=== PATIENT | male | born 1940 | race Caucasian/White ===

== ENCOUNTER 2016-08-22 13:06 | Observation (INO) | payer OTHER, MEDICARE ==
[~2016-08-22] VITALS: Ht 180.3 cm; Wt 136.0 kg
[~2016-08-22 13:06] MED LIST: ARTIDRO; DABI150 PO; ENAL20TA PO; FLUO60TA PO; FURO1TAB93 PO; IPRA0.02 INH; METO100T PO; MORP20SO PO; PRAZ2 PO; SPIRCAP INH; TAB-TAB PO
[2016-08-22 13:08] VITALS: BP 153/97; PULSE 68; RESP 28; TEMP 98.4; O2SAT 95
--- NOTE | 2016-08-22 13:45 | PD ---
HPI Chief Complaint: Abnormal Results Time Seen by Provider: 13:42 Travel History International Travel<30 days: No Contact w/Intl Traveler<30days: No Traveled to known affect area: No History of Present Illness HPI 76-year-old male with history of reactive airway disease, atrial fibrillation on Pradaxa, hypertension, CAD, CHF, presents to emergency department for evaluation of black tarry loose stools over the last 2 weeks. Patient's been seen and evaluated at the [facility]. He tells me last week his hemoglobin was 12 and today it was 11. They advised that he come to the emergency department for evaluation. Patient has had increasing shortness of breath. He has had pain associated with diarrhea cramping but otherwise no constant pain. He has felt chilled without fevers. He has felt overall fatigued. Patient's last colonoscopy was within the last couple years and he states that it was "fine." He has no other symptoms to report. PFSH Past Medical History Hx Anticoagulant Therapy: Yes Arthritis: Yes Asthma: Yes Atrial Fibrillation: Yes Anxiety: Yes Depression: Yes Cancer: No Cardiac Catheterization: Yes (JANUARY 2007) Cardiovascular Problems: Yes High Cholesterol: Yes Congestive Heart Failure: Yes COPD: Yes Cerebrovascular Accident: Yes Diabetes: Yes GERD: Yes Hepatitis: No Hiatal Hernia: No Hypertension: Yes Musculoskeletal: Yes (LOW BACK PAIN, RESTLESS LEG) Psychiatric: Yes (PTSD) Reproductive: Yes (BPH) Respiratory: Yes Myocardial Infarction: Yes Sleep Apnea: Yes (CPAP HS) Thyroid Disease: No Past Surgical History Abdominal Surgery: Yes (HERNIA REPAIR) Pacemaker: No Other Surgery: Yes Social History Alcohol Use: Yes (OCCASIONAL) Tobacco Use: No Substance Use: No Allergies-Medications (Allergen,Severity, Reaction): Coded Allergies: Simvastatin (Unverified Allergy, Severe, leg cramps, 08/22/16) Reported Meds & Prescriptions Reported Meds & Active Scripts Active Reported Morphine Sulfate 20 Mg/5 Ml Jamia 20 Mg PO Lasix (Furosemide) 40 Mg Tab 40 Mg PO DAILY Atrovent Ud 0.02% (0.5 Mg/2.5 Ml) (Ipratropium [place]) 0.5 Mg/2.5 Ml Nebu 0.5 Mg INH TID PRN Artificial Tears (Propylene Glycol-Glycerin) Tears Joel Fluoxetine (Fluoxetine HCl) 60 Mg Tab 30 Mg PO DAILY Pradaxa 150 Mg Cap (Dabigatran) 150 Mg Cap 150 Mg PO BID Multivitamin (Multivitamins) 1 Tab Tab 1 Tab PO DAILY Spiriva Handihaler (Tiotropium [place]) 18 Mcg Cap 1 Dose INH DAILY DO NOT SWALLOW CAPSULES Metoprolol Tartrate 100 Mg Tab 50 Mg PO BID TAKE HALF TABLET TWICE DAILY Prazosin Hcl (Prazosin HCl) 2 Mg Cap 2 Mg PO Q12 Enalapril Maleate 20 Mg Tab 20 Mg PO TWO TABLETS BY MOUTH DAILY Review of Systems Except as stated in HPI: all other systems reviewed are Neg Physical Exam Narrative GENERAL: Well-nourished male patient, ambulatory with cane assistance, in no acute distress SKIN: Warm and dry. HEAD: Atraumatic. Normocephalic. EYES: Pupils equal and round. No scleral icterus. No injection or drainage. ENT: No nasal bleeding or discharge. Mucous membranes pink and moist. NECK: Trachea midline. No JVD. CARDIOVASCULAR: Regular rate and rhythm. No murmur appreciated. RESPIRATORY: No accessory muscle use. Diminished.. Breath sounds equal bilaterally. GASTROINTESTINAL: Abdomen soft, non-tender, nondistended. Hepatic and splenic margins not palpable. MUSCULOSKELETAL: No obvious deformities. No clubbing. No cyanosis. No edema. NEUROLOGICAL: Awake and alert. No obvious cranial nerve deficits. Motor grossly within normal limits. Normal speech. Data Data Last Documented VS Vital Signs Date Time Temp Pulse Resp B/P Pulse Ox O2 Delivery O2 Flow Rate FiO2 08/22/16 13:08 98.4 68 28 153/97 95 Room Air Orders Complete Blood Count With Diff (08/22/16 13:41) Comprehensive Metabolic Panel (08/22/16 13:41) Prothrombin Time / Inr (Pt) (08/22/16 13:41) Act Partial Throm Time (Ptt) (08/22/16 13:41) Urinalysis - C+S If Indicated (08/22/16 13:41) Type And Screen (08/22/16 13:41) Chest, Single Ap (08/22/16 13:41) Urine Culture (08/22/16 14:05) Electrocardiogram (08/22/16 ) Labs Laboratory Tests Test 08/22/16 14:05 White Blood Count 4.8 TH/MM3 Red Blood Count 3.76 MIL/MM3 Hemoglobin 11.2 GM/DL Hematocrit 34.5 % Mean Corpuscular Volume 91.7 FL Mean Corpuscular Hemoglobin 29.7 PG Mean Corpuscular Hemoglobin 32.4 % Concent Red Cell Distribution Width 15.9 % Platelet Count 177 TH/MM3 Mean Platelet Volume 9.3 FL Neutrophils (%) (Auto) 71.8 % Lymphocytes (%) (Auto) 19.9 % Monocytes (%) (Auto) 6.0 % Eosinophils (%) (Auto) 1.8 % Basophils (%) (Auto) 0.5 % Neutrophils # (Auto) 3.5 TH/MM3 Lymphocytes # (Auto) 1.0 TH/MM3 Monocytes # (Auto) 0.3 TH/MM3 Eosinophils # (Auto) 0.1 TH/MM3 Basophils # (Auto) 0.0 TH/MM3 CBC Comment DIFF FINAL Differential Comment Prothrombin Time 12.2 SEC Prothromb Time International 1.1 RATIO Ratio Activated Partial 35.2 SEC Thromboplast Time Urine Color YELLOW Urine Turbidity CLEAR Urine pH 5.5 Urine Specific [place] 1.017 Urine Protein NEG mg/dL Urine Glucose (UA) NEG mg/dL Urine Ketones NEG mg/dL Urine Occult Blood NEG Urine Nitrite NEG Urine Bilirubin NEG Urine Urobilinogen LESS THAN 2.0 MG/DL Urine Leukocyte Esterase LARGE Urine RBC LESS THAN 1 /hpf Urine WBC 11 /hpf Urine Squamous Epithelial 1 /hpf Cells Urine Transitional Epithelial 1 /hpf Cells Urine Mucus FEW /lpf Microscopic Urinalysis Comment CULTURE INDICATED Sodium Level 145 MEQ/L Potassium Level 4.1 MEQ/L Chloride Level 113 MEQ/L Carbon Dioxide Level 24.7 MEQ/L Anion Gap 7 MEQ/L Blood Urea Nitrogen 25 MG/DL Creatinine 1.11 MG/DL Estimat Glomerular Filtration 64 ML/MIN Rate Random Glucose 132 MG/DL Calcium Level 8.2 MG/DL Total Bilirubin 0.3 MG/DL Aspartate Amino Transf 10 U/L (AST/SGOT) Alanine Aminotransferase 24 U/L (ALT/SGPT) Alkaline Phosphatase 75 U/L Total Protein 6.2 GM/DL Albumin 3.5 GM/DL [facility] Medical Decision Making Medical Screen Exam Complete: Yes Emergency Medical Condition: Yes Medical Record Reviewed: Yes Differential Diagnosis GI bleed upper versus lower versus symptomatic anemia versus COPD exacerbation versus pneumonia Narrative Course 76-year-old male presents to emergency department for evaluation. Workup initiated in triage. Once a medical bed becomes available, patient will be transferred and care assumed by that provider. Condition: Stable Shalonda Diaz Aug 22, 2016 13:45
[2016-08-22 14:17] LABS: BLOOD, URINE NEG (NEG); GLUCOSE,URINE NEG (NEG); KETONE, URINE NEG (NEG); MUCUS URINE FEW /lpf (OCC); NITRITE,URINE NEG (NEG); PH, URINE 5.5 (5.0-8.5); SQUAMOUS EPITHELIAL CELL URINE 1 /hpf (0-5); TRANSITIONAL EPI CELLS, URINE 1 /hpf; URINE COLOR YELLOW (YELLW/STRAW)
[2016-08-22 14:18] LABS: AUTOMATED NEUTROPHIL # 3.5 TH/MM3 (1.8-7.7); BASOPHIL % 0.5 % (0.0-2.0); COMMENT (UR) CULTURE INDICATED; CULTURE IF INDICATED CULTURE INDICATED; EOSINOPHIL # 0.1 TH/MM3 (0-0.4); EOSINOPHIL % 1.8 % (0.0-4.0); HEMATOCRIT 34.5 % (39.0-51.0); HEMO FLAGS DIFF FINAL; LYMPH % 19.9 % (9.0-44.0); MEAN CELL VOLUME 91.7 FL (80.0-100.0); MEAN CORPUSCULAR HEMOGLOBIN 29.7 PG (27.0-34.0); MEAN CORPUSCULAR HGB CONC 32.4 % (32.0-36.0); NEUT % 71.8 % (16.0-70.0); PLATELET COUNT 177 TH/MM3 (150-450); RED BLOOD COUNT 3.76 MIL/MM3 (4.50-5.90); RED CELL DISTRIBUTION WIDTH 15.9 % (11.6-17.2); WHITE BLOOD COUNT 4.8 TH/MM3 (4.0-11.0)
[2016-08-22 14:28] LABS: APTT (PATIENT) 35.2 SEC (24.3-30.1); INTERNATIONAL NORMALIZED RATIO 1.1 RATIO; PROTHROMBIN TIME - PATIENT 12.2 SEC (9.8-11.6)
[2016-08-22 14:32] LABS: ALT (GPT) 24 U/L (12-78); ANION GAP 7 MEQ/L (5-15); AST (GOT) 10 U/L (15-37); BICARBONATE 24.7 MEQ/L (21.0-32.0); BLOOD UREA NITROGEN 25 MG/DL (7-18); CHLORIDE 113 MEQ/L (98-107); GLOMERULAR FILTRATION RATE 64 ML/MIN (>89); POTASSIUM 4.1 MEQ/L (3.5-5.1); SODIUM (NA) 145 MEQ/L (136-145)
[2016-08-22 14:34] LABS: ALKALINE PHOSPHATASE 75 U/L (45-117); TOTAL BILIRUBIN ADULT 0.3 MG/DL (0.2-1.0)
[2016-08-22 14:45] VITALS: BP 141/67; PULSE 78; RESP 26; O2SAT 95
[2016-08-22] MEDS ORDERED: METO50TA PO (14:54)
[2016-08-22] MEDS ORDERED: CITA40TA4 PO (14:54)
[2016-08-22] MEDS ORDERED: PRAD150C PO (14:54)
[2016-08-22] MEDS ORDERED: POTA10CA PO (14:54)
[2016-08-22] MEDS ORDERED: MORP1TAB24 PO (14:54)
[2016-08-22] MEDS ORDERED: [UNRECOGNIZED DRUG - CODE] (14:54)
[2016-08-22] MEDS ORDERED: PRAZ2CAP PO (14:54)
[2016-08-22] MEDS ORDERED: FURO40TA PO (14:54)
[2016-08-22] MEDS ORDERED: ZOLP10TA3 PO (14:54)
[2016-08-22] MEDS ORDERED: PANTOPRAZOLE INJ 80 MG in SODIUM CHLORIDE 0.9% INJ 35 ML IV ONE (15:15)
[2016-08-22] MEDS ORDERED: cefTRIAXone INJ 1,000 MG in SODIUM CHLORIDE 0.9% INJ 100 ML IV ONE (15:15)
--- NOTE | 2016-08-22 15:19 | PD ---
Physical Exam Narrative 76yo M with PMH of afib on pradaxa, COPD not on home O2 was sent from [facility] today for a drop in hemoglobin. Pt has been having black diarrhea for 2 weeks and went to [facility] last week and found to have hemoglobin of 12. Today hemoglobin is 11. Pt states he feels more sob than normal. He is saturating at 98% on RA but is tachypneic. Lungs are clear to auscultation bilaterally. Labs reviewed, H/H is 11.2/34.5. BUN elevated at 25. UA positive for large leukocyte with 11 WBC. Pt given ceftriaxone 1gm IV. Hemaprompt positive. Discussed with Dr. Hickey and accepted to his service. Pt is hemodynamically stable. GI consult placed. Data Data Last Documented VS Vital Signs Date Time Temp Pulse Resp B/P Pulse Ox O2 Delivery O2 Flow Rate FiO2 08/22/16 14:45 78 26 141/67 95 Room Air 08/22/16 13:08 98.4 Orders Complete Blood Count With Diff (08/22/16 13:41) Comprehensive Metabolic Panel (08/22/16 13:41) Prothrombin Time / Inr (Pt) (08/22/16 13:41) Act Partial Throm Time (Ptt) (08/22/16 13:41) Urinalysis - C+S If Indicated (08/22/16 13:41) Type And Screen (08/22/16 13:41) Chest, Single Ap (08/22/16 13:41) Urine Culture (08/22/16 14:05) Electrocardiogram (08/22/16 ) Pantoprazole Inj (Protonix Inj) (08/22/16 15:15) Pantoprazole Inj (Protonix Inj) (08/22/16 15:15) Troponin I (08/22/16 15:08) Ceftriaxone Inj (Rocephin Inj) (08/22/16 15:15) Consult Gastroenterology (08/22/16 ) Admit Order (Ed Use Only) (08/22/16 15:11) Place In Observation (08/22/16 ) Activity Oob With Assistance (08/22/16 15:11) Scd Bilateral/Knee High IVETTE.QSHIFT (08/22/16 15:11) Vital Signs (Adult) IVETTE.Q4H (08/22/16 15:11) Sports Team Marketing Intern / Telemetry IVETTE.Q8H (08/22/16 15:11) Consult Pt Eval & Treat (08/22/16 15:11) Labs Laboratory Tests Test 08/22/16 14:05 White Blood Count 4.8 TH/MM3 Red Blood Count 3.76 MIL/MM3 Hemoglobin 11.2 GM/DL Hematocrit 34.5 % Mean Corpuscular Volume 91.7 FL Mean Corpuscular Hemoglobin 29.7 PG Mean Corpuscular Hemoglobin 32.4 % Concent Red Cell Distribution Width 15.9 % Platelet Count 177 TH/MM3 Mean Platelet Volume 9.3 FL Neutrophils (%) (Auto) 71.8 % Lymphocytes (%) (Auto) 19.9 % Monocytes (%) (Auto) 6.0 % Eosinophils (%) (Auto) 1.8 % Basophils (%) (Auto) 0.5 % Neutrophils # (Auto) 3.5 TH/MM3 Lymphocytes # (Auto) 1.0 TH/MM3 Monocytes # (Auto) 0.3 TH/MM3 Eosinophils # (Auto) 0.1 TH/MM3 Basophils # (Auto) 0.0 TH/MM3 CBC Comment DIFF FINAL Differential Comment Prothrombin Time 12.2 SEC Prothromb Time International 1.1 RATIO Ratio Activated Partial 35.2 SEC Thromboplast Time Urine Color YELLOW Urine Turbidity CLEAR Urine pH 5.5 Urine Specific [place] 1.017 Urine Protein NEG mg/dL Urine Glucose (UA) NEG mg/dL Urine Ketones NEG mg/dL Urine Occult Blood NEG Urine Nitrite NEG Urine Bilirubin NEG Urine Urobilinogen LESS THAN 2.0 MG/DL Urine Leukocyte Esterase LARGE Urine RBC LESS THAN 1 /hpf Urine WBC 11 /hpf Urine Squamous Epithelial 1 /hpf Cells Urine Transitional Epithelial 1 /hpf Cells Urine Mucus FEW /lpf Microscopic Urinalysis Comment CULTURE INDICATED Sodium Level 145 MEQ/L Potassium Level 4.1 MEQ/L Chloride Level 113 MEQ/L Carbon Dioxide Level 24.7 MEQ/L Anion Gap 7 MEQ/L Blood Urea Nitrogen 25 MG/DL Creatinine 1.11 MG/DL Estimat Glomerular Filtration 64 ML/MIN Rate Random Glucose 132 MG/DL Calcium Level 8.2 MG/DL Total Bilirubin 0.3 MG/DL Aspartate Amino Transf 10 U/L (AST/SGOT) Alanine Aminotransferase 24 U/L (ALT/SGPT) Alkaline Phosphatase 75 U/L Total Protein 6.2 GM/DL Albumin 3.5 GM/DL Blood Type A NEGATIVE Antibody Screen NEGATIVE Blood Bank Comment MDM Supervised Visit with MARKUS: Yes Interpretation(s) EKG: Afib at 66bpm. Q wave II, III, aVF. HemaPrompt Test Point of Care Internal Pos. & Neg. Controls: Passed Fecal Specimen Occult Blood: Positive Diagnosis Primary Impression: GI bleed Qualified Code: K92.1 - Gastrointestinal hemorrhage with melena Admitting Information Admitting Physician Requests: Admit Condition: Stable Maryan Fernandez DO Aug 22, 2016 15:19
--- NOTE | 2016-08-22 15:30 | HHI.HP ---
HPI Service [facility] Hospitalists Primary Care Physician [facility] Admission Diagnosis GI bleed Chief Complaint: Melena, SOB Travel History International Travel<30 Days: No Contact w/Intl Traveler <30 Da: No Traveled to Known Affected Are: No History of Present Illness Mr. Parra is a pleasant 76 y/o WM with diastolic CHF, atrial fibrillation on chronic anticoagulation with Pradaxa, COPD, HTN, NOHEMI on CPAP and peripheral neuropathy. Pt reported to the ED at [facility] on 08/22/16 with complaints of melena. He states that around 2 weeks ago he started having several loose black stools each day, mostly in the evening with some fecal incontinence. He denies taking any iron supplements or Pepto-Bismol. He was seen at the [facility] last week and had blood work done and was told his Hgb was 12. He was seen again today and told that his Hgb was 11 and instructed to go to the ER for further evaluation. He states that more recently he noticed feeling more SOB with exertion and some generalized weakness. He denies any reflux, dysphagia, abd pain, nausea/ vomiting. Pt takes 2 Advil per day for several years. He drinks about 6 shots of vodka per week. Remote hx of tobacco use, smoked 1ppd x 20 years, quit in the . Pts reports that his last colonoscopy was with Dr. Navas several years ago and he reports that he was found to have colon polyps but there is no record of this in [facility]. He was seen by Dr. Muse in 07/2015 and scheduled for an EGD/colonoscopy but it was cancelled by Brandon Johnson due to his "heart condition" per the pt. Review of Systems Constitutional: DENIES: Fever, Chills Ears, nose, mouth, throat: DENIES: Hearing loss Respiratory: COMPLAINS OF: Shortness of breath, DENIES: Cough Cardiovascular: COMPLAINS OF: Dyspnea on Exertion, Lower Extremity Edema, DENIES: Chest pain, Palpitations Gastrointestinal: COMPLAINS OF: Black stools, Diarrhea, DENIES: Abdominal pain , Constipation, Nausea, Vomiting Genitourinary: DENIES: Hematuria, Dysuria Musculoskeletal: DENIES: Back pain, Neck pain Integumentary: DENIES: Rash Neurologic: DENIES: Headache Psychiatric: DENIES: Confusion Past Family Social History Past Medical History Atrial fibrillation BPH with urinary obstruction CAD CKD, stage II Diastolic CHF GERD HTN Alcohol abuse PTSD Chronic back pain/spinal stenosis Osteoarthritis RLS NOHEMI on CPAP Vitamin D deficiency Venous insufficiency 2D echo (01/05/13) - Moderate concentric hypertrophy - EF 55-60% - Diastolic dysfunction Past Surgical History Inguinal hernia repair Decompressive laminectomy Rhizotomy Right foot surgery Reported Medications -Citalopram 40 Mg PO DAILY -Furosemide 40 Mg PO BID -Potassium Chloride ER 10 Meq PO BID -Metoprolol Tartrate 50 Mg PO DAILY --Zolpidem 10 Mg PO HS PRN -Prazosin 2 Mg PO BID -Pradaxa 150 Mg PO BID -Morphine ER 15 Mg PO Q6HR Allergies: Coded Allergies: Simvastatin (Unverified Allergy, Severe, leg cramps, 08/22/16) Family History Noncontributory Social History (+) Alcohol abuse, pt drinks 6 shots of vodka per week Hx of tobacco use, smoked 1ppd x 20+ years, quit in Hx of marijuana use Physical Exam Vital Signs Vital Signs Date Time Temp Pulse Resp B/P Pulse Ox O2 Delivery O2 Flow Rate FiO2 08/22/16 14:45 78 26 141/67 95 Room Air 08/22/16 13:08 98.4 68 28 153/97 95 Room Air Physical Exam GENERAL: This is a well-nourished, well-developed patient, in no apparent distress. HEENT: Atraumatic. Normocephalic. No temporal or scalp tenderness. No scleral icterus. Airway patent. NECK: Trachea midline, supple, nontender. CARDIO: Regular. RESP: CTA bilaterally. No wheezes, rales, or rhonchi. ABD: +BS, soft, non-tender, nondistended. EXT: Bilateral LE edema. NEURO: Awake and alert. Motor and sensory grossly within normal limits. Normal speech. Laboratory Laboratory Tests Test 08/22/16 14:05 White Blood Count 4.8 Red Blood Count 3.76 Hemoglobin 11.2 Hematocrit 34.5 Mean Corpuscular Volume 91.7 Mean Corpuscular Hemoglobin 29.7 Mean Corpuscular Hemoglobin 32.4 Concent Red Cell Distribution Width 15.9 Platelet Count 177 Mean Platelet Volume 9.3 Neutrophils (%) (Auto) 71.8 Lymphocytes (%) (Auto) 19.9 Monocytes (%) (Auto) 6.0 Eosinophils (%) (Auto) 1.8 Basophils (%) (Auto) 0.5 Neutrophils # (Auto) 3.5 Lymphocytes # (Auto) 1.0 Monocytes # (Auto) 0.3 Eosinophils # (Auto) 0.1 Basophils # (Auto) 0.0 CBC Comment DIFF FINAL Differential Comment Prothrombin Time 12.2 Prothromb Time International 1.1 Ratio Activated Partial 35.2 Thromboplast Time Urine Color YELLOW Urine Turbidity CLEAR Urine pH 5.5 Urine Specific [place] 1.017 Urine Protein NEG Urine Glucose (UA) NEG Urine Ketones NEG Urine Occult Blood NEG Urine Nitrite NEG Urine Bilirubin NEG Urine Urobilinogen LESS THAN 2.0 Urine Leukocyte Esterase LARGE Urine RBC LESS THAN 1 Urine WBC 11 Urine Squamous Epithelial 1 Cells Urine Transitional Epithelial 1 Cells Urine Mucus FEW Microscopic Urinalysis Comment CULTURE INDICATED Sodium Level 145 Potassium Level 4.1 Chloride Level 113 Carbon Dioxide Level 24.7 Anion Gap 7 Blood Urea Nitrogen 25 Creatinine 1.11 Estimat Glomerular Filtration 64 Rate Random Glucose 132 Calcium Level 8.2 Total Bilirubin 0.3 Aspartate Amino Transf 10 (AST/SGOT) Alanine Aminotransferase 24 (ALT/SGPT) Alkaline Phosphatase 75 Total Protein 6.2 Albumin 3.5 Blood Type A NEGATIVE Antibody Screen NEGATIVE Blood Bank Comment Date/Time Procedure Status Source Growth 08/22/16 14:05 Urine Culture Received Urine Random Urine Pending Result Diagram: 08/22/16 1405 08/22/16 1405 Imaging Last Impressions Chest X-Ray 08/22/16 1341 Signed Impressions: Service Date/Time: Monday, August 22, 2016 14:21 - CONCLUSION: Compensated cardiomegaly. No acute cardiopulmonary process. Sanford Landry MD Septic Shock Reassessment Heart: Regular rate and rhythm Lungs: Clear Skin: Warm Peripheral Pulses: Bounding Right Radial Bounding Left Radial Bounding Right Popliteal Bounding Left Popliteal Bounding Right Dorsalis Pedis Bounding Left Dorsalis Pedis Bounding Right Posterior Tibial Bounding Left Posterior Tibial Assessment and Plan Problem List: (1) GI bleed Status: Acute Plan: - Pt admitted with complaints of a two week history of melena, several times per day, mostly during the night with reported fecal incontinence - He has been taking Aleve, two tablets daily for several years and is also on Pradaxa for A. fib - Doesn't sound like hes had a previous EGD - Last colonoscopy was a few years ago with Dr. Navas and pt reported hx of colon polyps - Pt has been started on a Protonix gtt - GI consulted - Hold Pradaxa - No NSAIDs - NPO after MN except meds - DVT prophylaxis with SCDs (2) COPD (chronic obstructive pulmonary disease) Status: Chronic Plan: - Duonebs PRN (3) Diastolic CHF Status: Chronic Plan: - Pts last 2D echo was in 2012 with noted diastolic dysfunction - He reports some increased LE edema recently - Resume home dose of Lasix - Repeat 2D echo - Resume home meds - Monitor clinical status (4) HTN (hypertension) Status: Chronic Plan: - Cont. home meds (5) NOHEMI on CPAP Status: Chronic Plan: - CPAP at night (6) GERD (gastroesophageal reflux disease) Status: Chronic Plan: - See above. - PPI (7) Lumbar radiculopathy Status: Chronic Plan: - Cont. chronic pain meds Assessment and Plan Patient examined. Assessment and plan formulated with Radha Pressley PA-C. I agree with the above. melena x 2 weeks. hold asa and pradaxa. consult GI for egd. ppi Problem Qualifiers (1) GI bleed: Qualified Code: K92.1 - Gastrointestinal hemorrhage with melena Radha Pressley Aug 22, 2016 15:30 Alireza Hickey MD Aug 22, 2016 18:45
[2016-08-22] MEDS: PANTOPRAZOLE INJ 80 MG in SODIUM CHLORIDE 0.9% INJ 100 ML IV SCH ×2 (15:57→16:22)
--- NOTE | 2016-08-22 15:57 | RADRPT ---
EXAM DATE/TIME: 08/22/2016 14:21 [facility] COMPARISON: CHEST SINGLE AP, June 04, 2013, 13:08. INDICATIONS : Shortness of breath, low hemoglobin, dizziness, diarrhea and black stool. MEDICAL HISTORY : None. SURGICAL HISTORY : None. ENCOUNTER: Initial ACUITY: 1 day PAIN SCORE: 0/10 LOCATION: Bilateral chest FINDINGS: A single view of the chest demonstrates the lungs to be symmetrically aerated without evidence of mas s, infiltrate or effusion. The cardiomediastinal contours demonstrate compensated cardiomegaly.. Os seous structures are intact. CONCLUSION: Compensated cardiomegaly. No acute cardiopulmonary process. Sanford Landry MD on August 22, 2016 at 15:55 Board Certified Radiologist. This report was verified electronically.
[2016-08-22 17:00] VITALS: BP 120/77; PULSE 76; RESP 16; O2SAT 98
--- NOTE | 2016-08-22 17:36 | PD.CONS ---
HPI History of Present Illness This is a 76 year old male patient who started having diarrhea with black tarry stool for about 3-4 days about 2 weeks ago. He went to the MD at that time and they checked his H/H and it went from 13-->12.0. He was told to continue his pradaxa and [facility] if [facility] had any worsening of symptoms. The diarrhea improved, but came back on about a week ago and he started having the black stool again. He denies any nausea, vomiting, or abdominal pain. He does not get heartburn or reflux. He used to get heartburn pretty often but states he has not had this in quite some time. He has been more fatigued and lightheaded with shortness of breath on exertion for the past few weeks. This is aggravated by exertion and improves with rest. He takes Pradaxa 150mg po BID for atrial fibrillation and he last took it this morning. He reports that he has had an EGD/Colonoscopy, but its been awhile. He has been to our office a few time and a colonoscopy has been ordered twice, but he never went to obtain clearance prior to the procedure. He did recently go to our office to have one scheduled, but needed to get cardiac and pulmonary clearance first and did not do that. He takes Aleve, about 2 a day. He denies any hx of PUD. Of note, he states that if he is going to need an EGD, then he would prefer to have both at the same time because once he leaves here, he will not come back to have it done. (Nu Gutierrez) PFSH Past Medical History Vitamin D deficiency Venous insufficiency Adjustment disorder with depressed mood Atrial fibrillation Anxiety Asthma Atherosclerosis of aorta Benign proximal positional vertigo BPH Bronchitis History of colon polyps Restless leg syndrome Coronary artery disease Cervical/lumbar radiculopathy COPD Chronic kidney disease Diabetic nephropathy History of dysphagia History of elevated PSA at [facility] Hyperlipidemia Hypertension Sleep apnea Spinal stenosis Osteoarthritis Past Surgical History Colonoscopy Right foot surgery Inguinal hernia repair Epidural injections Decompressive laminectomy facetectomy and foraminotomy Nerve blocks Rhizotomy (Nu Gutierrez) Coded Allergies: Simvastatin (Unverified Allergy, Severe, leg cramps, 08/22/16) Medications Allergies Coded Allergies Type Severity Reaction Last Updated Verified Simvastatin Allergy Severe leg cramps 08/22/16 No Active Scripts Medications Dose Route/Sig Days Date Category [Meds2] Unknown Dose 08/22/16 Reported Citalopram (Citalopram Hydrobromide) 40 Mg Tab 40 Mg PO DAILY 08/22/16 Reported Furosemide 40 Mg Tab 40 Mg PO BID 08/22/16 Reported Potassium Chloride ER (Potassium Chloride) 10 Meq Cap 10 Meq PO BID 08/22/16 Reported Metoprolol Tartrate 50 Mg Tab 50 Mg PO DAILY 08/22/16 Reported Zolpidem (Zolpidem Tartrate) 10 Mg Tab 10 Mg PO HS PRN 08/22/16 Reported Prazosin (Prazosin HCl) 2 Mg Cap 2 Mg PO BID 08/22/16 Reported Pradaxa (Dabigatran) 150 Mg Cap 150 Mg PO BID 08/22/16 Reported Morphine ER (Morphine Sulfate) 15 Mg Tab 15 Mg PO Q6HR 08/22/16 Reported Family History Mother had heart disease Brother had diabetes Social History Former smoker 5 years (Nu Gutierrez) Review of Systems Constitutional: COMPLAINS OF: Fatigue, Dizziness, DENIES: Weight loss, Change in appetite Respiratory: COMPLAINS OF: Shortness of breath, DENIES: Cough Cardiovascular: DENIES: Chest pain Gastrointestinal: COMPLAINS OF: Black stools, DENIES: Abdominal pain, Bloody stools, Constipation, Diarrhea, Nausea, Vomiting, Anorexia, Odynophagia, Swelling of Abdomen, Heartburn, Hematemesis Musculoskeletal: COMPLAINS OF: Back pain Integumentary: DENIES: Abnormal pigmentation Hematologic/lymphatic: DENIES: Bruising Neurologic: DENIES: Headache Psychiatric: DENIES: Confusion (Nu Gutierrez) GI Exam Vitals I&O Vital Signs Date Time Temp Pulse Resp B/P Pulse Ox O2 Delivery O2 Flow Rate FiO2 08/22/16 14:45 78 26 141/67 95 Room Air 08/22/16 13:08 98.4 68 28 153/97 95 Room Air Imaging Last Impressions Chest X-Ray 08/22/16 1341 Signed Impressions: Service Date/Time: Monday, August 22, 2016 14:21 - CONCLUSION: Compensated cardiomegaly. No acute cardiopulmonary process. Sanford Landry MD Laboratory Test 08/22/16 14:05 White Blood Count 4.8 TH/MM3 Red Blood Count 3.76 MIL/MM3 Hemoglobin 11.2 GM/DL Hematocrit 34.5 % Mean Corpuscular Volume 91.7 FL Mean Corpuscular Hemoglobin 29.7 PG Mean Corpuscular Hemoglobin 32.4 % Concent Red Cell Distribution Width 15.9 % Platelet Count 177 TH/MM3 Mean Platelet Volume 9.3 FL Neutrophils (%) (Auto) 71.8 % Lymphocytes (%) (Auto) 19.9 % Monocytes (%) (Auto) 6.0 % Eosinophils (%) (Auto) 1.8 % Basophils (%) (Auto) 0.5 % Neutrophils # (Auto) 3.5 TH/MM3 Lymphocytes # (Auto) 1.0 TH/MM3 Monocytes # (Auto) 0.3 TH/MM3 Eosinophils # (Auto) 0.1 TH/MM3 Basophils # (Auto) 0.0 TH/MM3 CBC Comment DIFF FINAL Differential Comment Prothrombin Time 12.2 SEC Prothromb Time International 1.1 RATIO Ratio Activated Partial 35.2 SEC Thromboplast Time Urine Color YELLOW Urine Turbidity CLEAR Urine pH 5.5 Urine Specific [place] 1.017 Urine Protein NEG mg/dL Urine Glucose (UA) NEG mg/dL Urine Ketones NEG mg/dL Urine Occult Blood NEG Urine Nitrite NEG Urine Bilirubin NEG Urine Urobilinogen LESS THAN 2.0 MG/DL Urine Leukocyte Esterase LARGE Urine RBC LESS THAN 1 /hpf Urine WBC 11 /hpf Urine Squamous Epithelial 1 /hpf Cells Urine Transitional Epithelial 1 /hpf Cells Urine Mucus FEW /lpf Microscopic Urinalysis Comment CULTURE INDICATED Sodium Level 145 MEQ/L Potassium Level 4.1 MEQ/L Chloride Level 113 MEQ/L Carbon Dioxide Level 24.7 MEQ/L Anion Gap 7 MEQ/L Blood Urea Nitrogen 25 MG/DL Creatinine 1.11 MG/DL Estimat Glomerular Filtration 64 ML/MIN Rate Random Glucose 132 MG/DL Calcium Level 8.2 MG/DL Total Bilirubin 0.3 MG/DL Aspartate Amino Transf 10 U/L (AST/SGOT) Alanine Aminotransferase 24 U/L (ALT/SGPT) Alkaline Phosphatase 75 U/L Troponin I LESS THAN 0.02 NG/ML Total Protein 6.2 GM/DL Albumin 3.5 GM/DL Blood Type A NEGATIVE Antibody Screen NEGATIVE Blood Bank Comment Date/Time Procedure Status Source Growth 08/22/16 14:05 Urine Culture Received Urine Random Urine Pending Physical Examination HEENT: Normocephalic; atraumatic; no jaundice. CHEST: CTA, diminished CARDIAC: Irregular ABDOMEN: Soft, nondistended, nontender; no hepatosplenomegaly; bowel sounds are present in all four quadrants. EXTREMITIES: No clubbing, cyanosis, or edema. SKIN: Normal; no rash; no jaundice. 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 (Nu Gutierrez) Assessment and Plan Plan ASSESSMENT: - GIB, Melena. He has been having intermittent melena x 2 weeks. He was seen at the MD and HH at that time went from 13.0---> 12.0 and he was instructed to continue his Pradaxa and closely monitor it. The melena resolved, but came back a week ago. He returned to the MD and had repeat labs done and was told to come to the ER for further evaluation. Of note, we have seen him in the office twice to arrange for a colonoscopy, but he does not follow up with this. He now reports that if he has to have an EGD done, he would like to have both at the same time, as he will not follow up as outpatient. HH 11.2/34.5. Last Pradaxa dose was this am. Also takes aleve for arthritic pain - Anemia secondary to acute blood loss. HH 11.2/34.5. - Afib, on Pradaxa 150mg po BID and he last took it this morning. Now on hold - CAD, Anxiety, RLS, CKD, DM, Sleep apnea per primary PLAN: - Plan for egd/colonoscopy in am - Obtain consents - NPO after MN - Golytely prep - PPI - Monitor HH - Transfuse as necessary - Supportive care - Further recommendations to follow based on results of above - Pt seen and examined by Dr. Ortega and myself and this note is written on her behalf (Nu Gutierrez) Physician Comments seen, examined agree with above (Fatuma Ortega MD) Nu Gutierrez Aug 22, 2016 17:36 Fatuma Ortega MD Aug 22, 2016 19:11
[2016-08-22] MEDS ORDERED: cloNIDine HCL 0.1 MG TAB PO PRN (17:45)
[2016-08-22] MEDS ORDERED: RESP: ALBUTEROL 2.5 MG/IPRATROPIUM 0.5 MG NEB (PRN) NEB (17:45)
[2016-08-22] MEDS ORDERED: ACETAMINOPHEN 325 MG TAB PO PRN (17:45)
[2016-08-22] MEDS ORDERED: ONDANSETRON HCL 4 MG/2 ML VIAL IV PRN (17:45)
[2016-08-22] MEDS ORDERED: MORPHINE SULFATE 15 MG CONTROLLED RELEASE TAB PO SCH (18:00)
[2016-08-22 18:50] VITALS: BP 103/77; PULSE 76; RESP 16; O2SAT 98
[2016-08-22] MEDS ORDERED: PEG (High)/E-LYTE SOLN 4000 ML BTL PO ONE (19:00)
[2016-08-22 19:30] VITALS: BP 136/76; PULSE 67; RESP 20; O2SAT 97
[2016-08-22] MEDS: DOCUSATE SODIUM 100 MG CAP PO SCH (21:32)
[2016-08-22] MEDS: POTASSIUM CHLORIDE 10 MEQ CAP PO SCH (21:33)
[2016-08-22] MEDS: FUROSEMIDE 40 MG TAB PO SCH (21:34)
[2016-08-22] MEDS: PRAZOSIN HCL 2 MG CAP PO SCH (21:35)
[2016-08-22] MEDS: MORPHINE SULFATE 15 MG CONTROLLED RELEASE TAB PO SCH (21:36)
[2016-08-23] VITALS: BP 133/70; PULSE 69; RESP 18; TEMP 95.5; O2SAT 97
[2016-08-23 04:00] VITALS: BP 141/86; PULSE 73; RESP 18; TEMP 96.3; O2SAT 95
[2016-08-23] MEDS: MORPHINE SULFATE 15 MG CONTROLLED RELEASE TAB PO SCH ×2 (06:25→14:00)
[2016-08-23] MEDS ORDERED: PANTOPRAZOLE INJ 80 MG in SODIUM CHLORIDE 0.9% INJ 100 ML IV SCH (07:00)
[2016-08-23 07:50] LABS: AUTOMATED NEUTROPHIL # 2.5 TH/MM3 (1.8-7.7); BASOPHIL % 0.6 % (0.0-2.0); EOSINOPHIL # 0.1 TH/MM3 (0-0.4); EOSINOPHIL % 2.2 % (0.0-4.0); HEMATOCRIT 32.7 % (39.0-51.0); HEMO FLAGS DIFF FINAL; LYMPHOCYTE # 1.4 TH/MM3 (1.0-4.8); MEAN CORPUSCULAR HEMOGLOBIN 29.7 PG (27.0-34.0); MONO % 8.4 % (0.0-8.0); NEUT % 57.8 % (16.0-70.0); PLATELET COUNT 154 TH/MM3 (150-450); RED BLOOD COUNT 3.63 MIL/MM3 (4.50-5.90); WHITE BLOOD COUNT 4.4 TH/MM3 (4.0-11.0)
[2016-08-23 08:00] VITALS: BP 135/81; PULSE 72; RESP 20; TEMP 96.3; O2SAT 97
[2016-08-23 08:24] LABS: BICARBONATE 25.3 MEQ/L (21.0-32.0); MAGNESIUM 2.2 MG/DL (1.5-2.5); POTASSIUM 3.6 MEQ/L (3.5-5.1)
[2016-08-23 08:31] VITALS: BP 131/96; PULSE 70; RESP 22; TEMP 98.6; O2SAT 96
--- NOTE | 2016-08-23 08:34 | HHI.PR ---
Subjective Remarks Pt had EGD/colonoscopy this morning which noted gastritis, diverticulosis and hemorrhoids NO active GIB. Pt feeling better overall today. Anxious for discharge. Objective Vitals Vital Signs Date Time Temp Pulse Resp B/P Pulse Ox O2 Delivery O2 Flow Rate FiO2 08/23/16 07:30 21 08/23/16 04:00 96.3 73 18 141/86 95 08/23/16 00:00 95.5 69 18 133/70 97 08/22/16 19:30 67 20 136/76 97 Room Air 08/22/16 18:50 76 16 103/77 98 Room Air 08/22/16 17:00 76 16 120/77 98 Room Air 08/22/16 14:45 78 26 141/67 95 Room Air 08/22/16 13:08 98.4 68 28 153/97 95 Room Air 08/22/16 08/22/16 08/23/16 15:00 23:00 07:00 Intake Total 0 ml Balance 0 ml Intake Oral 0 ml # Voids 2 # Bowel Movements 4 Result Diagram: 08/23/16 0659 08/23/16 0654 Other Results Laboratory Tests Test 08/22/16 08/23/16 08/23/16 14:05 06:54 06:59 White Blood Count 4.8 TH/MM3 4.4 TH/MM3 Red Blood Count 3.76 MIL/MM3 3.63 MIL/MM3 Hemoglobin 11.2 GM/DL 10.8 GM/DL Hematocrit 34.5 % 32.7 % Mean Corpuscular Volume 91.7 FL 90.0 FL Mean Corpuscular Hemoglobin 29.7 PG 29.7 PG Mean Corpuscular Hemoglobin 32.4 % 33.0 % Concent Red Cell Distribution Width 15.9 % 16.0 % Platelet Count 177 TH/MM3 154 TH/MM3 Mean Platelet Volume 9.3 FL 9.3 FL Neutrophils (%) (Auto) 71.8 % 57.8 % Lymphocytes (%) (Auto) 19.9 % 31.0 % Monocytes (%) (Auto) 6.0 % 8.4 % Eosinophils (%) (Auto) 1.8 % 2.2 % Basophils (%) (Auto) 0.5 % 0.6 % Neutrophils # (Auto) 3.5 TH/MM3 2.5 TH/MM3 Lymphocytes # (Auto) 1.0 TH/MM3 1.4 TH/MM3 Monocytes # (Auto) 0.3 TH/MM3 0.4 TH/MM3 Eosinophils # (Auto) 0.1 TH/MM3 0.1 TH/MM3 Basophils # (Auto) 0.0 TH/MM3 0.0 TH/MM3 CBC Comment DIFF FINAL DIFF FINAL Differential Comment Prothrombin Time 12.2 SEC Prothromb Time International 1.1 RATIO Ratio Activated Partial 35.2 SEC Thromboplast Time Urine Color YELLOW Urine Turbidity CLEAR Urine pH 5.5 Urine Specific [place] 1.017 Urine Protein NEG mg/dL Urine Glucose (UA) NEG mg/dL Urine Ketones NEG mg/dL Urine Occult Blood NEG Urine Nitrite NEG Urine Bilirubin NEG Urine Urobilinogen LESS THAN 2.0 MG/DL Urine Leukocyte Esterase LARGE Urine RBC LESS THAN 1 /hpf Urine WBC 11 /hpf Urine Squamous Epithelial 1 /hpf Cells Urine Transitional Epithelial 1 /hpf Cells Urine Mucus FEW /lpf Microscopic Urinalysis Comment CULTURE INDICATED Sodium Level 145 MEQ/L 144 MEQ/L Potassium Level 4.1 MEQ/L 3.6 MEQ/L Chloride Level 113 MEQ/L 111 MEQ/L Carbon Dioxide Level 24.7 MEQ/L 25.3 MEQ/L Anion Gap 7 MEQ/L 8 MEQ/L Blood Urea Nitrogen 25 MG/DL 21 MG/DL Creatinine 1.11 MG/DL 0.95 MG/DL Estimat Glomerular Filtration 64 ML/MIN 77 ML/MIN Rate Random Glucose 132 MG/DL 115 MG/DL Calcium Level 8.2 MG/DL 8.0 MG/DL Total Bilirubin 0.3 MG/DL Aspartate Amino Transf 10 U/L (AST/SGOT) Alanine Aminotransferase 24 U/L (ALT/SGPT) Alkaline Phosphatase 75 U/L Troponin I LESS THAN 0.02 NG/ML Total Protein 6.2 GM/DL Albumin 3.5 GM/DL Blood Type A NEGATIVE Antibody Screen NEGATIVE Blood Bank Comment Magnesium Level 2.2 MG/DL Imaging Last Impressions Chest X-Ray 08/22/16 1341 Signed Impressions: Service Date/Time: Monday, August 22, 2016 14:21 - CONCLUSION: Compensated cardiomegaly. No acute cardiopulmonary process. Sanford Landry MD Objective Remarks General: NAD, AAOx3 Chest: CTA bilaterally Cardiac: Irregular Abd: +BS, soft obese NT/ND Ext: Mild bilateral LE edema, improving. A/P Problem List: (1) GI bleed Status: Acute Plan: - Pt admitted with complaints of a two week history of melena, several times per day, mostly during the night with reported fecal incontinence - He has been taking Aleve, two tablets daily for several years and is also on Pradaxa for A. fib - Last colonoscopy was a few years ago with Dr. Navas and pt reported hx of colon polyps - Pt was started on a Protonix gtt at admission. - Pt had EGD/colonoscopy on 08/23/16 --> gastritis, diverticulosis, and hemorrhoids. No active GIB. - GI following - We will discharge the pt pn Protonix 40mg po daily - Pt can resume his Pradaxa on 08/24/16. He states that he wants to speak with his provider at the [facility] about when to resume his Pradaxa. - No NSAIDs - Pt stable for discharge to home. (2) COPD (chronic obstructive pulmonary disease) Status: Chronic Plan: - Duonebs PRN (3) Diastolic CHF Status: Chronic Plan: - Pts last 2D echo was in 2012 with noted diastolic dysfunction - He reports some increased LE edema recently - Resume home dose of Lasix - Repeat 2D echo is pending, he will need to followup with his PCP for results. - Resume home meds - Monitor clinical status (4) HTN (hypertension) Status: Chronic Plan: - Cont. home meds (5) NOHEMI on CPAP Status: Chronic Plan: - CPAP at night (6) GERD (gastroesophageal reflux disease) Status: Chronic Plan: - See above. - PPI (7) Lumbar radiculopathy Status: Chronic Plan: - Cont. chronic pain meds Assessment and Plan Patient examined. Assessment and plan formulated with Radha Pressley PA-C. I agree with the above. gastritis. hgb stable. no active bleeding. stop alleve. cont ppi. f/u. Problem Qualifiers (1) GI bleed: Qualified Code: K92.1 - Gastrointestinal hemorrhage with melena Radha Pressley Aug 23, 2016 08:34 Alireza Hickey MD Aug 23, 2016 16:09
[2016-08-23] MEDS: DOCUSATE SODIUM 100 MG CAP PO SCH (09:00)
[2016-08-23] MEDS ORDERED: METOPROLOL TARTRATE 50 MG TAB PO SCH (09:00)
[2016-08-23] MEDS ORDERED: CITALOPRAM HYDROBROMIDE 40 MG TAB PO SCH (09:00)
[2016-08-23] MEDS ORDERED: PROPOFOL 200 MG/20 ML AMP IV ONE (11:25)
[2016-08-23] MEDS: POTASSIUM CHLORIDE 10 MEQ CAP PO SCH (11:59)
[2016-08-23] MEDS: FUROSEMIDE 40 MG TAB PO SCH (11:59)
[2016-08-23] MEDS: PRAZOSIN HCL 2 MG CAP PO SCH (11:59)
[2016-08-23 12:00] VITALS: BP 158/90; PULSE 63; RESP 20; TEMP 95.7; O2SAT 96
[2016-08-23] MEDS ORDERED: PRAD150C PO (13:29)
[2016-08-23] MEDS ORDERED: PANT40TA3 PO (13:29)
--- NOTE | 2016-08-23 13:44 | HHI.DCPOC ---
Discharge Care Plan Diagnosis: (1) GI bleed (2) GERD (gastroesophageal reflux disease) (3) COPD (chronic obstructive pulmonary disease) (4) Lumbar radiculopathy (5) HTN (hypertension) (6) Diastolic CHF (7) NOHEMI on CPAP Goals to Promote Your Health * To prevent worsening of your condition and complications - Pt is to avoid all NSAIDs including Aleve - Pt will continue Protonix 40mg once daily in the morning about 30 minutes prior to eating breakfast. - He can resume Pradaxa tomorrow, 08/24/16 Directions to Meet Your Goals Take your medications as prescribed Follow your dietary instruction Follow activity as directed Keep your appointments as scheduled Take your immunizations and boosters as scheduled If your symptoms worsen call your PCP, if no PCP go to Urgent Care Center or Emergency Room Smoking is Dangerous to Your Health. Avoid second hand smoke Call the 24-hour hour crisis hotline for domestic abuse at Radha Pressley Aug 23, 2016 13:44
--- NOTE | 2016-08-23 16:16 | EKG ---
Date Performed: 08/22/2016 Time Performed: 14:14:06 PTAGE: 76 years EKG: ATRIAL FIBRILLATION RIGHT BUNDLE BRANCH BLOCK LEFT ANTERIOR FASCICULAR BLOCK Compared to pr ior tracing no significant change ABNORMAL ECG PREVIOUS TRACING : 06/05/2013 02.27 DOCTOR: Edinson Baldwin Interpretating Date/Time 08/23/2016 16:15:49
--- NOTE | 2016-08-23 17:15 | EC ---
Study Study Date:08/23/2016 STUDY CONCLUSIONS SUMMARY - Left ventricle: The cavity size was normal. Wall thickness was increased in a pattern of mild LVH. Systolic function was normal. The estimated ejection fraction was in the range of 55% to 60%. Wall motion was normal; there were no regional wall motion abnormalities. - Aortic valve: Valve area: 2.07cm^2 (Vmax). - Pulmonary arteries: PA peak pressure: 35mm Hg (S). If LV function is below 40, please consider prescribing an ACEI or ARB or document rationale for non-use. PROCEDURE DATA STUDY STATUS: Elective. Procedure: Transthoracic echocardiography. Image quality was suboptimal. The study was technically limited due to poor acoustic window availability. Scanning was performed from the parasternal, apical, and subcostal acoustic windows. Study completion: The patient tolerated the procedure well. Transthoracic echocardiography. M-mode, complete 2D, complete spectral Doppler, and color Doppler. Patient status: Inpatient. CARDIAC ANATOMY LEFT VENTRICLE: The cavity size was normal. Wall thickness was increased in a pattern of mild LVH. Systolic function was normal. The estimated ejection fraction was in the range of 55% to 60%. Wall motion was normal; there were no regional wall motion abnormalities. AORTIC VALVE: Trileaflet; normal thickness leaflets. Doppler: Transvalvular velocity was within the normal range. There was no stenosis. No regurgitation. Valve area: 2.07cm^2 (Vmax). AORTA: Aortic root: The aortic root was normal in size. MITRAL VALVE: Structurally normal valve. Doppler: Transvalvular velocity was within the normal range. There was no evidence for stenosis. Trace regurgitation. LEFT ATRIUM: The atrium was normal in size. RIGHT VENTRICLE: The cavity size was normal. Wall thickness was normal. PULMONIC VALVE: Doppler: Transvalvular velocity was within the normal range. There was no evidence for stenosis. No regurgitation. TRICUSPID VALVE: Structurally normal valve. Doppler: Transvalvular velocity was within the normal range. No regurgitation. PULMONARY ARTERY: The main pulmonary artery was normal-sized. Systolic pressure was within the normal range. RIGHT ATRIUM: The atrium was normal in size. PERICARDIUM: There was no pericardial effusion. SYSTEMIC VEINS: Inferior vena cava: The vessel was normal in size. BASIC MEASUREMENTS ADULT Normal Left ventricle LV internal dimension, ED, chordal level, *42.8 mm 43-52 PLAX LV internal dimension, ES, chordal level, 32.8 mm 23-38 PLAX Fractional shortening, chordal level, PLAX *23 % >29 LV posterior wall thickness, ED 9.64 mm IVS/LVPW ratio, ED 0.99 <1.3 Ventricular septum Septal thickness, ED 9.52 mm Aortic valve Leaflet separation 24 mm 15-26 BASIC MEASUREMENTS ADULT Normal Aortic valve Leaflet separation 24 mm 15-26 Aorta Root diameter, ED 28 mm 20-37 Left atrium Anterior-posterior dimension, ES *50 mm 19-40 LA/aortic root ratio 1.79 DOPPLER MEASUREMENTS ADULT Normal Main pulmonary artery Pressure, S *35 mm Hg =30 Aortic valve Peak velocity, S 143 cm/s Valve area, Vmax 2.07 cm^2 Tricuspid valve Regurgitant peak velocity 200 cm/s Peak RV-RA gradient, S 16 mm Hg Maximal regurgitant velocity 200 cm/s Systemic veins Estimated CVP 10 mm Hg Right ventricle RV pressure, S *42 mm Hg <30 Pulmonic valve Peak velocity, S 128 cm/s LEGEND: Mean values are shown as u=mean value. Asterisk (*) carson values outside specified normal range. Prepared and signed by Riley Forman [id number]
[2016-08-24] MEDS ORDERED: PANTOPRAZOLE SOD 40 MG DELAYED RELEASE TAB PO SCH (09:00)
== END 2016-08-23 16:16 | disposition home or self-care (01) ==
LOC: NEPA 13:06 → NEDA 15:12 → NEDH 18:54 → NEPFCDU 23:36
PROVIDERS: ADMIT Hospitalist; ATTEND Hospitalist
DX: D62 Acute posthemorrhagic anemia (principal); K57.90 Diverticulosis of intestine, part unspecified, without perforation or abscess without bleeding; K29.70 Gastritis, unspecified, without bleeding; K63.5 Polyp of colon; K64.9 Unspecified hemorrhoids; K21.9 Gastro-esophageal reflux disease without esophagitis; M54.16 Radiculopathy, lumbar region; J44.9 Chronic obstructive pulmonary disease, unspecified; J45.909 Unspecified asthma, uncomplicated; I13.0 Hypertensive heart and chronic kidney disease with heart failure and stage 1 through stage 4 chronic kidney disease, or unspecified chronic kidney disease; N18.2 Chronic kidney disease, stage 2 (mild); I50.32 Chronic diastolic (congestive) heart failure; I48.91 Unspecified atrial fibrillation; I25.10 Atherosclerotic heart disease of native coronary artery without angina pectoris; I87.2 Venous insufficiency (chronic) (peripheral); G47.33 Obstructive sleep apnea (adult) (pediatric); R82.79 Other abnormal findings on microbiological examination of urine; I25.2 Old myocardial infarction; F43.10 Post-traumatic stress disorder, unspecified; G25.81 Restless legs syndrome; E11.21 Type 2 diabetes mellitus with diabetic nephropathy; E78.00 Pure hypercholesterolemia, unspecified; E78.5 Hyperlipidemia, unspecified; F10.10 Alcohol abuse, uncomplicated; G62.9 Polyneuropathy, unspecified; Z79.01 Long term (current) use of anticoagulants; Z86.010 Personal history of colon polyps; Z86.73 Personal history of transient ischemic attack (TIA), and cerebral infarction without residual deficits; Z87.891 Personal history of nicotine dependence
CPT/HCPCS: 00740; 43239; 45378; 71010; 80048; 80053; 81001; 83735; 84484; 85025; 85610; 85730; 86850; 86900; 86901; 87086; 88305; 88312; 93005; 93306; 94664; 97163; 99285; C9113; G0378; G8987; G8988; J0696

== ENCOUNTER 2018-07-02 06:15 | Inpatient (IN) ==
[2018-07-02] MEDS ORDERED: Metoprolol Tartrate 25 MG Tablet PO ONE (06:52)
[2018-07-02] MEDS ORDERED: Chlorhexidine Gluconate 2% 1 Pack (2 Cloths) TOPICAL ONE (06:52)
[2018-07-02] MEDS ORDERED: Vancomycin Inj 1,000 MG in Sodium Chlor 0.9% Inj 250 ML IV.SIG PRN (06:54)
[2018-07-02] MEDS ORDERED: Bupivacaine/Epinephrine PF Inj 0.5% 30 ML Vial ONE (06:59)
[2018-07-02] MEDS ORDERED: Thrombin Topical Soln 5,000 UNIT Vial TOPICAL ONE (06:59)
[2018-07-02] MEDS ORDERED: Gelatin Size 100 Topical Foam ONE (06:59)
[2018-07-02] MEDS ORDERED: Sod Chloride 0.9% Inj 1,000 ML IV.SIG SCH (07:00)
[2018-07-02] MEDS ORDERED: Sodium Chlor 0.9% Inj 500 ML IV.SIG SCH (07:00)
[2018-07-02] MEDS ORDERED: Propofol Inj 500 MG/50 ML Vial ONE ×2 (08:13→12:44)
[2018-07-02] MEDS ORDERED: fentaNYL Citrate Inj 250 MCG/5 ML Ampul ONE (08:13)
[2018-07-02] MEDS ORDERED: fentaNYL Citrate Inj 100 MCG/2 ML Ampul ONE ×2 (08:13→15:42)
[2018-07-02] MEDS ORDERED: ceFAZolin 1 GM Premix Inj 2 GM/100 ML PIGGYBACK IV.SIG ONE (08:40)
[2018-07-02] MEDS ORDERED: ceFAZolin 1 GM Premix Inj 1 GM/50 ML PIGGYBACK IV.SIG ONE (08:44)
[2018-07-02] MEDS ORDERED: Chlorhexidine Gluconate 2% 1 Pack (2 Cloths) TOPICAL SCH (09:00)
[2018-07-02] MEDS ORDERED: ceFAZolin 1 GM Premix Inj 3 GM/150 ML PIGGYBACK IV.SIG ONE (13:39)
[2018-07-02] MEDS ORDERED: Bisacodyl 10 MG Supp RECTAL PRN (14:43)
[2018-07-02] MEDS ORDERED: Acetaminophen 325 MG Tablet PO PRN (14:43)
[2018-07-02] MEDS ORDERED: Naloxone Inj 0.4 MG/ML Vial IV.PUSH PRN (14:43)
--- NOTE | 2018-07-02 15:04 | XR ---
EXAM DATE: 07/02/2018 2:55 PM EST AGE/SEX: 77 years / Male INDICATIONS: Lumbar fusion L4/5. CLINICAL DATA: This is the patient's initial encounter. Patient reports that signs and symptoms have been present for 1 day and indicates a pain score of Nonresponsive. MEDICAL/SURGICAL HISTORY: Non-responsive. Non-responsive. COMPARISON: No prior exams available for comparison. FINDINGS: 2 spot images obtained in the operating room during a procedure demonstrates posterior pedicular scre ws bilaterally at what appears to represent L4 and L5. Material is also present in the intervening di sc spaces. No unexpected finding is identified. CONCLUSION: There are pedicular screws at L4-L5 related to posterior fusion. Electronically signed by: Ronald Sweeney MD 07/02/2018 3:03 PM EST
[2018-07-02] MEDS ORDERED: Morphine Inj 4 MG/ML Vial ONE (15:43)
[2018-07-02] MEDS ORDERED: *morphine SULFATE 4 MG/ML PERIprocedure ONLY ONE (15:56)
[2018-07-02] MEDS: Gabapentin 400 MG Capsule PO SCH ×2 (17:24→21:31)
[2018-07-02] MEDS: Furosemide 40 MG Tablet PO SCH (17:24)
--- NOTE | 2018-07-02 17:30 | P.OP ---
Preoperative Diagnosis: L4-5 spondylolisthesis Postoperative Diagnosis: L4-5 spondylolisthesis Date of procedure: 07/02/18 Procedure: L4-L5 redo laminectomy, interbody arthrodesis using PEEK cage and autologous bone graft, L4-L5 instrumental fixation using transpedicular screws and rods, L4 -L5 cover remover lateral fusion using autologous bone graft and demineralized bone matrix. Microsurgical dissection Anesthesia: MEENU Surgeon: Cedrick Cain MD Wash Rack Operator: Fifi Xiao Pathology: none sent Operation and Findings: INDICATIONS FOR THE SURGICAL PROCEDURE Mr Parra is a 77 year-old male who presented with intractable mechanical back pain and annie evidence of L5 lower extremity radiculopathy. He failed maximum nonsurgical management including multiple modalities of conservative treatment as well as pain management interventions by an interventional pain specialist. A surgical decompression and arthrodesis were indicated as a last resort. The [id number] details of the procedure, indications, alternatives, risks and potential complications were fully discussed with the patient. The patient fully understood. All the questions were answered. No guarantees were given. The patient voiced requesting the procedure and provided informed consents. The patient was offered the alternative of delaying the procedure and continuing with nonsurgical management. DETAILS OF THE SURGICAL PROCEDURE Prior to the procedure, the surgical incision was marked in the preoperative surgical holding room, and the procedure, risks, and potential complications revisited with the patient. Placement of electrodes for intraoperative neurophysiological monitoring was completed. The patient was taken to the operative room, and following induction of general anesthesia, endotracheal intubation was performed. A Hooper catheter, bilateral SHELLEY hose and sequential compression devices were placed and kept throughout the procedure. The patient was positioned prone, over a Marv table over a bolsters. All pressure in the preoperative surgical holding room points were carefully padded with eggcrate and gel mattress. The eyes were tapped shut after ointment was applied by the anesthesiologist to prevent corneal abrasion. A Donald hugger was placed over the expossed lower body to maintain control of the core body temperature. The electrophysiological team placed the needles and electrodes in their proper location and baseline SSEP's and EMG potentials were registered. The entrance to each pedicles was marked using a C arm. The lumbar region was prepped and draped in the usual sterile fashion. The surgical procedure was performed in several steps as follow: SURGICAL APPROACH Once the patient was positioned, a localizing cross-table lateral x-ray was performed with a C-arm. Two paramedian small incisions were outlined on the skin approximately 3cm from the midline. The skin incisions were made with a # 10 blade. Small bleeders were controlled with the cautery. The dissection was then carried out into deper planes and through the thoracolumbar fascia with a Bovie. The intermuscular septum was identified and the myscles were blunted dissected along the septum. The facets and transverse process of L4 and L5 were exposed and the proper anatomical landmarks were identidied. A microsurgical self-retaining retractor was placed on the incision, and a localizing lateralizing cross-table x-ray was performed with an instrument underneath a lamina of the lumbar spine. INSTRUMENTAL FIXATION At this point in the procedure, placement of bilateral transpedicular screws was necessary for stabilization of the spine. Initially, the entry point for the screw was selected anatomically at the junction of the facet, with the transverse process, and the pars interarticularis at L4 and L5. This was started with a Giamshetti needle followed by the use of a monsalve wire. A tap was used to create the threads for the screws. Finally bilateral transpedicular screws were carefully placed bilaterally at L4, and L5 under fluoroscopic visualization. An appropriate purchase was achieved with all screws. The position of each screw was assessed anatomically with an AP, lateral , oblique Xrays. An intraoperative scan view of the spine was then performed using the iso-centric c-arm. Each screw was then assessed electrophysiologically stimulating each screw with a nerve stimulator. SURGICAL DECOMPRESSION There was significant mass effect with compression of the neural structures. In order to relieve neural compression, it was necessary to perform a decompressive laminectomy, with decompression of the spinal canal and bilateral lateral recesses. Note that the scope of such decompression was significantly more extensive than the minimal exposure necessary to perform an interbody fusion, as there was extreme facet arthropathy with near complete collapse of the disk spaces and severe stenosis cause by the hyperthrophic joint facets. At this point of the procedure the operative microscope was draped in the usual sterile fashion and brought to the field. The rest of the surgical procedure was performed using microdissection technique with the exception of the closure. . Once the level was confirmed, the margins of the prior laminectomy were exposed. There was extensive scar tissue from the prior surgery. Once the bony margins were exposed, a laminectomy was performed extending slightly the prior opening using the TPS drill with an 4mm drill bit. A medial facetectomy was performed and the superior free border of the ligamentum flavum was dissected with a ligament dissector and removed with a thin footplate 2 mm Kerrison. The scar tssue was carefully dissected from the dural sac and the L5 nerve root was identified and followed towards its exit in the foramen. A foraminotomy was done. Epidural veins located laterally to the dural sac were coagulated with a bipolar and incised with micro scissors. Gentle medial retraction of the dural sac allowed inspection of the disc space. The patient had a very large, recurrent disc extrusion, causing mass effect over the exiting nerve root. INTERBODY ARTHRODHESIS In order to correct the narrowing of the disk space and maintain distraction of the space, and to achieve a solid interbody fusion, it was necessary the insertion of an interbody device into the disk space. Otherwise, the disk space would collapse, compromising the result of the surgical procedure. At this point of the procedure, the annulus fibrosus of the disk was carefully coagulated with a bipolar cautery and incised using an 11 bladed knife. Then, a microdiscectomy was carried out in a standard fashion using a combination of straight and up-biting pituitary forceps. A reverse angle curette was applied underneath the posterior longitudinal ligament, and used to push the disk fragments into the disk space, so they can be safely removed with a pituitary forceps. Once the discectomy was completed, it was necessary to decorticate the endplates, in order to eliminate the cartilaginous endplate and to expose healthy bone appropriate to perform the interbody fusion. The endplates at L4- L5 were then thoroughly decorticated using increasing size bone darwin and ring curets, eliminating the cartilaginous fragments from both, the superior and inferior endplates. A disk space distractor was applied to the pedicle screws and gentle distraction was applied. This maneuver was assisted by the use of a disk distractor. Increased motility was noted at the disk, which was consistent with instability due to facet arthropathy. Once a thorough preparation of the disk space was achieved, the disk space was irrigated with antibiotic solution, and the interbody fusion was performed by carefully impacting an expandable PPEK cage filled with autologous iliac crest bone graft. The cage was cartefully expanded. A solid position of the cage with good purchase was achieved. The position of the cage was assessed anatomically with a probe and radiologically with the C-arm. POSTEROLATERAL FUSION The posterolateral fusion is a critical component to the procedure, to prevent future fatigue and failure of the instrumental fixation. Initially, the transverse processes of the vertebral bodies, lateral surface of the facets and the lateral gutters of the spine were carefully cleaned, eliminating all soft tissue and muscle attachments. The area was then irrigated with a large amount of antibiotic solution. Subsequently, the transverse processes, lateral surface of the facets, and lateral gutters of the spine were thoroughly decorticated using the TPS drill with a 5mm cutting amalia, exposing cancellous bone, in preparation for the posterolateral fusion. The incision was again irrigated with antibiotic solution. Then, the posterolateral fusion was then performed by carefully packing the lateral gutters of the spine at L4-L5 with autologous iliac crest bone combined with demineralized bone matrix. I packed as much bone as possible. COMPLETION OF THE INSTRUMENTATION AND CLOSURE The rods were brought to the field, applied to all the screws, and the screw caps were sequentially applied. Compression was performed between the pedicle screws, and final tightening of the screws was completed using a torque wrench. The incision was again thoroughly irrigated with several liters of antibiotic solution, and hemostasis secured with the bipolar cautery. A Valsalva Maneuver performed by the anesthesiologist failed to show any evidence of cerebrospinal fluid leak or bleeding. A 7 mm Marv-Rubio drain was left in the epidural space and externalized through a separate stab incision. The incision was then closed in planes. 0 Vicryl was used in an interrupted fashion to close the thoracolumbar fascia and the superficial fascia. The subcutaneous tissue was then approximated using 3-0 Vicryl in an interrupted fashion. Special care was taken to avoid space. The skin was then closed with 4-0 Vicryl in a running, subcuticular fashion. Dermabond was applied to the skin. Each plane of closure was irrigated with antibiotic solution. At the end of the procedure the sponge, needle and instrument counts were all correct. Estimated blood loss was 250 cc. No blood transfusion was given. The entire procedure was performed using continuous electrophysiological monitoring of the somatosensorial evoked potentials and EMG. The patient received prophylactic antibiotics. The patient was then extubated and transferred to the recovery room in stable condition.
[2018-07-02] MEDS ORDERED: Sodium Chloride 0.9% 2 ML Flush PRN IV.FLUSH (18:29)
[2018-07-02] MEDS ORDERED: [UNRECOGNIZED DRUG - OTHER] PO SCH (21:00)
[2018-07-02] MEDS ORDERED: MAGNESIUM 250 MG PO SCH (21:00)
[2018-07-02] MEDS: Vancomycin Inj 1,000 MG in Sodium Chlor 0.9% Inj 250 ML IV.SIG SCH (21:31)
[2018-07-02] MEDS: Senna/Docusate Sodium 8.6/50 MG Tablet PO SCH (21:31)
[2018-07-02] MEDS: Sodium Chloride 0.9% 2 ML Flush BID IV.FLUSH SCH (21:33)
[2018-07-03] MEDS: HYDROmorphone PCA Inj 6 MG/30 ML PCA.VIAL PCA PRN ×2 (03:56→06:54)
[2018-07-03] MEDS: Sod Chloride 0.9% Inj 1,000 ML IV.SIG SCH ×2 (04:36→05:01)
[2018-07-03 06:39] LABS: Baso % (Auto) 0.1 % (0.0-2.0); Eos % (Auto) 0.1 % (0.0-4.0); Hematocrit 33.6 % (39.0-51.0); Hemoglobin 11.1 gm/dL (13.0-17.0); Mean Corpuscular Hemoglobin 29.9 pg (27.0-34.0); Mean Corpuscular Volume 90.6 fL (80.0-100.0); Mean Platelet Volume 9.4 fL (7.0-11.0); Mono # (Auto) 0.6 th/mm3 (0.0-0.9); Mono % (Auto) 7.1 % (0.0-8.0); Neut # (Auto) 7.1 th/mm3 (1.8-7.7); Neut % (Auto) 81.7 % (16.0-70.0); Platelet Count 177 th/mm3 (150-450); Red Blood Count 3.71 mil/mm3 (4.50-5.90); Red Cell Distribution Width 16.9 % (11.6-17.2); White Blood Count 8.7 th/mm3 (4.0-11.0)
[2018-07-03 07:06] LABS: Calcium 7.3 mg/dL (8.5-10.1); Carbon Dioxide 26.9 meq/L (21.0-32.0); Potassium 4.2 meq/L (3.5-5.1)
[2018-07-03 07:18] LABS: Albumin 3.1 g/dL (3.4-5.0)
[2018-07-03] MEDS: Furosemide 40 MG Tablet PO SCH ×2 (08:41→17:10)
[2018-07-03] MEDS: Gabapentin 400 MG Capsule PO SCH ×4 (08:41→20:10)
[2018-07-03] MEDS: Spironolactone 25 MG Tablet PO SCH (08:42)
[2018-07-03] MEDS: Senna/Docusate Sodium 8.6/50 MG Tablet PO SCH ×2 (08:42→20:11)
[2018-07-03] MEDS: Vancomycin Inj 1,000 MG in Sodium Chlor 0.9% Inj 250 ML IV.SIG SCH (09:23)
[2018-07-03] MEDS: Sodium Chloride 0.9% 2 ML Flush BID IV.FLUSH SCH ×2 (09:23→20:11)
--- NOTE | 2018-07-03 11:22 | P.CONIM ---
History of Present Illness Reason for Consult: assist with medical management Primary Care Provider: Romain Mitchell MD History of Present Illness: This is a pleasant 77 y/o WM with diastolic CHF, atrial fibrillation on chronic anticoagulation with Pradaxa, COPD, HTN, NOHEMI on CPAP and peripheral neuropathy. 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 Microsurgical dissection on 07/02/[address] Cain. We have been consulted to assist with medical management. At this time patient offers no medical complaints. Patient denies N/V/D/C, fevers, chills, chest pain or shortness of breath. Past Medical History Atrial fibrillation BPH with urinary obstruction CAD CKD, stage II Diastolic CHF GERD HTN Alcohol abuse PTSD Chronic back pain/spinal stenosis Osteoarthritis RLS NOHEMI on CPAP Vitamin D deficiency Venous insufficiency 2D echo (01/05/13) - Moderate concentric hypertrophy - EF 55-60% - Diastolic dysfunction Past Surgical History Inguinal hernia repair Decompressive laminectomy Rhizotomy Right foot surgery Family History Noncontributory Social History (+) Alcohol abuse, pt drinks 6 shots of vodka per week Hx of tobacco use, smoked 1ppd x 20+ years, quit in Hx of marijuana use PMFSH Social History Social History Substance History: No History of Abuse Second Hand Smoke Exposure: No Smoking Status: Former smoker How Often Do You Have a Drink Containing Alcohol: 2 to 3 times a week Recent Travel in [facility] within the Last 8 Weeks: No Immunization History Hx Influenza Vaccine This Season: Yes Medications and Allergies Allergies Allergy/AdvReac Type Severity Reaction Status Date / Time simvastatin Allergy Severe leg cramps Verified 07/02/18 07:02 Home Medications Medication Instructions Recorded Confirmed Type acetaminophen [Acetaminophen Extra 500 mg PO Q6H PRN 07/01/18 07/02/18 History Strength] apixaban [Eliquis] 5 mg PO BID 07/01/18 07/02/18 History furosemide 40 mg PO BID 07/01/18 07/02/18 History gabapentin 400 mg PO QID 07/01/18 07/02/18 History magnesium 250 mg PO BID 07/01/18 07/02/18 History morphine 15 mg PO Q12H 07/01/18 07/02/18 History zolpidem 10 mg PO HS 07/01/18 07/02/18 History spironolactone 25 mg PO DAILY 07/02/18 07/02/18 History Active Medications: Active Medications Acetaminophen (Tylenol) 650 mg PO Q4H PRN PRN Reason: TEMPERATURE > 101.5 F Hydrocodone Bitart/Acetaminophen (Stephens 10/325) 1 tab PO Q4H PRN PRN Reason: Pain Scale 1 To 5 Al Hydroxide/Mg Hydroxide (Milk Of Magnesia Liq) 30 ml PO Q12H PRN PRN Reason: Mild Constipation Bisacodyl (Dulcolax Supp) 10 mg RECTAL DAILY PRN PRN Reason: SEVERE CONSITIPATION Chlorhexidine Gluconate (Chlorhexidine 2% Cloth) 1 pack TOPICAL DAILY [facility] Stop: 07/04/18 09:01 Clonidine HCl (Catapres) 0.1 mg PO Q6H PRN PRN Reason: SYS BP GREATER THAN 170 MMHG Cyclobenzaprine HCl (Flexeril) 10 mg PO Q8H PRN PRN Reason: MUSCLE SPASM Last Admin: 07/03/18 03:42 Dose: 10 mg Enoxaparin Sodium (Lovenox Inj) 40 mg SQ DAILY [facility] Furosemide (Lasix) 40 mg PO BID@0900,1800 [facility] Last Admin: 07/03/18 08:41 Dose: 40 mg Gabapentin (Neurontin) 400 mg PO QID [facility] Last Admin: 07/03/18 08:41 Dose: 400 mg Hydromorphone/Sodium Chloride (Dilaudid Web Site Project Manager Inj) 6 mg in 30 mls @ 0 mls/hr METAL FABRICATOR 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 UNSCH PRN PRN Reason: prn pain Last Admin: 07/03/18 06:54 Dose: 0 mls/hr Sodium Chloride (Ns Inj) 1,000 mls @ 100 mls/hr IV.SIG .Q10H [facility] Last Admin: 07/03/18 05:01 Dose: 100 mls/hr Lactulose (Lactulose Liq) 30 ml PO DAILY PRN PRN Reason: SEVERE CONSITIPATION Miscellaneous Information (Misc Nursing Information) 0 each OTHER UNSCH PRN PRN Reason: SEE LABEL COMMENTS Stop: 07/03/18 15:13 Mupirocin (Bactroban 2% Oint) 1 applicatio TOPICAL BID [facility] Last Admin: 07/03/18 08:42 Dose: 1 applicatio Naloxone HCl (Narcan Inj) 0.4 mg IV.PUSH PRN PRN PRN Reason: SEE LABEL COMMENTS Ondansetron HCl (Zofran Inj) 4 mg IV.PUSH Q6H PRN PRN Reason: NAUSEA OR VOMITING Pantoprazole Sodium (Protonix) 40 mg PO DAILY [facility] Last Admin: 07/03/18 08:41 Dose: 40 mg Ptownmed(Magnesium [ (Magnesium] 250 Mg)) 0 each PO BID [facility] Senna/Docusate Sodium (Dai-Colace) 1 tab PO BID [facility] Last Admin: 07/03/18 08:42 Dose: Not Given Sennosides (Senokot) 17.2 mg PO Q12H PRN PRN Reason: Moderate Constipation Sodium Chloride (Ns Flush) 2 ml IV.FLUSH BID [facility] Last Admin: 07/03/18 09:23 Dose: Not Given Sodium Chloride (Ns Flush) 2 ml IV.FLUSH PRN PRN PRN Reason: FLUSH AFTER USING IV ACCESS Spironolactone (Aldactone) 25 mg PO DAILY [facility] Last Admin: 07/03/18 08:42 Dose: 25 mg Zolpidem Tartrate (Ambien) 10 mg PO HS [facility] Last Admin: 07/02/18 21:32 Dose: 10 mg Physical Exam Vital signs: Last Vital Signs Temp 97.6 F 07/03/18 08:00 Pulse 68 07/03/18 08:00 Resp 18 07/03/18 08:00 BP 117/64 07/03/18 08:00 Pulse Ox 97 07/03/18 09:24 Narrative: GENERAL: This is a well-nourished, well-developed patient, in no apparent distress. CARDIOVASCULAR: irregularly irregular RESPIRATORY: Clear to auscultation. Breath sounds equal bilaterally. GASTROINTESTINAL: Abdomen soft, non-tender, nondistended. Normal active bowel sounds MUSCULOSKELETAL: Extremities without clubbing, cyanosis, or edema. NEURO: Alert & Oriented x4 to person, place, time, situation. Moves all ext x4 Results Labs CBC & Chem 7: 07/03/18 05:28 07/03/18 05:28 Assessment and Plan Plan This is a pleasant 77 y/o WM with diastolic CHF, atrial fibrillation on chronic anticoagulation with Pradaxa, COPD, HTN, NOHEMI on CPAP and peripheral neuropathy. 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 Microsurgical dissection on 07/02/[address] Cain. We have been consulted to assist with medical management. At this time patient offers no medical complaints. Patient denies N/V/D/C, fevers, chills, chest pain or shortness of breath. 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 Microsurgical dissection on 07/02/[address] Cain Atrial fibrillation Eliquis on hold per neurosurgery due to recent surgery CKD, stage II avoid nephrotoxic agents monitor renal function Diastolic CHF 2D echo (01/05/13) - Moderate concentric hypertrophy - EF 55-60% - Diastolic dysfunction Continue home spironolactone 25 mg daily and Lasix 40 mg PO BID Alcohol abuse CIWA protocol NOHEMI on CPAP Patient may use his home CPAP DVT prophylaxis with SCDs, chemical DVT prophylaxis per neurosurgery
--- NOTE | 2018-07-03 11:28 | P.PNNS ---
Subjective Interval history: doing well, reports of back pain, surgical pain. reports no radicular type pain in his lower extremities Physical Exam Vital signs: Vital Signs 07/02/18 15:12 07/02/18 15:30 07/02/18 15:45 Temperature 98.3 F Pulse Rate 85 81 83 Respiratory Rate 16 16 17 Blood Pressure 128/77 150/74 H 145/72 H Pulse Oximetry 96 95 94 L 07/02/18 16:00 07/02/18 16:15 07/02/18 16:30 Temperature 97.9 F Pulse Rate 80 81 80 Respiratory Rate 16 15 15 Blood Pressure 126/81 125/72 141/77 H Pulse Oximetry 94 L 95 95 07/02/18 17:00 07/02/18 19:13 07/03/18 00:00 Temperature 97.6 F 97.6 F 97.5 F L Pulse Rate 83 87 78 Respiratory Rate 17 18 20 Blood Pressure 125/79 126/95 H 126/72 Pulse Oximetry 95 100 96 07/03/18 04:18 07/03/18 05:37 07/03/18 08:00 Temperature 97.4 F L 97.6 F Pulse Rate 97 H 68 Respiratory Rate 20 18 18 Blood Pressure 131/75 117/64 Pulse Oximetry 85 L 96 07/03/18 09:24 Temperature Pulse Rate Respiratory Rate Blood Pressure Pulse Oximetry 97 Intake & Output 07/02/18 07/03/18 07/03/18 18:59 06:59 18:59 Intake Total 3250 / 3250 1210 / 1210 Output Total 1200 / 1200 2019 / 2019 Balance 2049 / 2049 -810 / -810 Weight 144.5 kg 149.2 kg Intake: IV 550 / 550 250 / 250 Vancomycin Inj 1,000 MG In NS 250 / 250 250 / 250 Inj 250 ML @ 250 mls/hr IV.SIG Q12H [facility] Rx#:[id number] Ancef 1 GM Premix Inj 3 gm In 300 / 300 150 ml @ 0 mls/hr IV.SIG .STK- MED ONE Rx#:[id number] Oral 960 / 960 Anesthesia Amount 2700 / 2700 Output: Estimated Blood Loss 250 / 250 Urine Amount (Catheter) 800 / 800 1949 Indwelling Urethral Catheter 800 / 800 1949 Wound Drainage 150 / 150 70 / 70 # 1 Right Lower Posterior TIM 150 / 150 70 / 70 Drain Other: Date of Last Bowel Movement 07/01/18 07/02/18 Weight On Admission 135 kg Narrative: Awake, alert NAD - Urinary Catheter Management Indwelling Urethral Catheter Cath placed during this visit: yes, but has since been removed by the nurse Reason for continuing: Decision to DC catheter Insertion date: 07/02/18 Insertion time: 09:00 Removal date: 07/03/18 Removal time: 09:41 Assessment and Plan - Plan 77 year old male L4-L5 redo laminectomy, interbody arthrodesis using PEEK cage and autologous bone graft, L4-L5 instrumental fixation using transpedicular screws and rods, 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
[2018-07-03] MEDS ORDERED: LORazepam 1 MG Tablet PO PRN (11:31)
[2018-07-03] MEDS: Enoxaparin Inj 40 MG/0.4 ML Syringe SQ SCH (12:46)
[2018-07-04] MEDS: Furosemide 40 MG Tablet PO SCH (08:20)
[2018-07-04] MEDS: Senna/Docusate Sodium 8.6/50 MG Tablet PO SCH (08:20)
[2018-07-04] MEDS: Spironolactone 25 MG Tablet PO SCH (08:20)
[2018-07-04] MEDS: Gabapentin 400 MG Capsule PO SCH (08:21)
[2018-07-04] MEDS: Enoxaparin Inj 40 MG/0.4 ML Syringe SQ SCH (08:21)
[2018-07-04] MEDS: Sodium Chloride 0.9% 2 ML Flush BID IV.FLUSH SCH (08:26)
[2018-07-04 08:52] VITALS: BP 123/61; RESP 20; TEMP 99.4; O2SAT 99
--- NOTE | 2018-07-04 09:25 | P.DCO ---
- Physical Therapy Order: Improve ambulation - Home Health Nursing Order: Medical education, Signs/symptoms of disease process, Wound care and dressing changes (optifoam dressing may be kept on until 07/11/18, pt may shower ), Nursing assessment with vital signs - Case Management Consult Case Management Consult-Home Health: Yes - Certification I have seen patient Shamir Parra on 07/04/18. My clinical findings support the need for the requested home health care services because: Deconditioned with increased weakness, High risk of falls I certify that my clinical findings support that this patient is homebound because: Post-op weakness, Unsteady gait/balance
--- NOTE | 2018-07-04 09:35 | P.PNNS ---
Subjective Interval history: doing well, reports minimal back pain, no radicular type pain, ambulating with his walker, has multiple walkers at home. reports +BM. requesting to go home Physical Exam Vital signs: Vital Signs 07/03/18 12:00 07/03/18 16:00 07/03/18 17:02 Temperature 99.9 F H 98.5 F Pulse Rate 89 90 Respiratory Rate 18 22 Blood Pressure 116/77 134/84 Pulse Oximetry 97 98 98 07/03/18 19:26 07/03/18 20:09 07/03/18 23:46 Temperature 100.4 F H 99.2 F Pulse Rate 96 H 88 94 H Respiratory Rate 21 18 Blood Pressure 109/67 123/77 Pulse Oximetry 96 96 07/04/18 00:05 07/04/18 03:28 07/04/18 08:00 Temperature 97.8 F 99.4 F Pulse Rate 93 H 90 104 H Respiratory Rate 19 20 Blood Pressure 114/73 123/61 Pulse Oximetry 95 99 Intake & Output 07/03/18 07/04/18 07/04/18 18:59 06:59 18:59 Intake Total 250 / 250 960 / 960 200 / 200 Output Total 555 / 555 2825 / 2825 Balance -305 / -305 -1865 / -1865 200 / 200 Weight 149.2 kg Intake: IV 250 / 250 Vancomycin Inj 1,000 MG In NS 250 / 250 Inj 250 ML @ 250 mls/hr IV.SIG Q12H [facility] Rx#:[id number] Oral 960 / 960 200 / 200 Output: Urine 450 / 450 2765 / 2765 Wound Drainage 105 / 105 60 / 60 # 1 Right Lower Posterior TIM 105 / 105 60 / 60 Drain Other: Date of Last Bowel Movement 07/02/18 07/04/18 # Bowel Movements 1 Narrative: Awake, alert NAD sitting up in chair with LSO brace TIM drain in place wound with clean dry primapore dressing moving extremities well - Urinary Catheter Management Indwelling Urethral Catheter Cath placed during this visit: yes, but has since been removed by the nurse Reason for continuing: Decision to DC catheter Insertion date: 07/02/18 Insertion time: 09:00 Removal date: 07/03/18 Removal time: 09:41 Assessment and Plan - Plan 77 year old male L4-L5 redo laminectomy, interbody arthrodesis using PEEK cage and autologous bone graft, L4-L5 instrumental fixation using transpedicular screws and rods, 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 Cain cleared for discharge home will consult case to arrange HHC with PT cont LSO when mobilizing out of bed dc TIM drain, replace dressing to Optifoam prior to dc - dw nursing
[2018-07-04 09:54] VITALS: PULSE 90
[2018-07-04] MEDS: Sod Chloride 0.9% Inj 1,000 ML IV.SIG SCH (11:18)
--- NOTE | 2018-07-04 11:18 | P.DS ---
Date of admission: 07/02/18 14:52 Primary care physician: Romain Mitchell MD DS: Summary - Time Spent with Patient Total time spent providing and/or coordinating discharge services: - Quality: VTE Deep Vein Thrombosis/Pulmonary Embolism Present on Admission: No Exam Vital signs: Vital Signs 07/03/18 12:00 07/03/18 16:00 07/03/18 17:02 Temperature 99.9 F H 98.5 F Pulse Rate 89 90 Respiratory Rate 18 22 Blood Pressure 116/77 134/84 Pulse Oximetry 97 98 98 07/03/18 19:26 07/03/18 20:09 07/03/18 23:46 Temperature 100.4 F H 99.2 F Pulse Rate 96 H 88 94 H Respiratory Rate 21 18 Blood Pressure 109/67 123/77 Pulse Oximetry 96 96 07/04/18 00:05 07/04/18 03:28 07/04/18 08:00 Temperature 97.8 F 99.4 F Pulse Rate 93 H 90 104 H Respiratory Rate 19 20 Blood Pressure 114/73 123/61 Pulse Oximetry 95 99 07/04/18 09:00 Temperature Pulse Rate 90 Respiratory Rate Blood Pressure Pulse Oximetry Intake & Output 07/03/18 07/04/18 07/04/18 18:59 06:59 18:59 Intake Total 250 / 250 960 / 960 200 / 200 Output Total 555 / 555 2825 / 2825 Balance -305 / -305 -1865 / -1865 200 / 200 Weight 149.2 kg Intake: IV 250 / 250 Vancomycin Inj 1,000 MG In NS 250 / 250 Inj 250 ML @ 250 mls/hr IV.SIG Q12H [facility] Rx#:[id number] Oral 960 / 960 200 / 200 Output: Urine 450 / 450 2765 / 2765 Wound Drainage 105 / 105 60 / 60 # 1 Right Lower Posterior TIM 105 / 105 60 / 60 Drain Other: Date of Last Bowel Movement 07/02/18 07/04/18 07/02/18 # Bowel Movements 1 Results - Impressions ITS Impressions Lumbar Spine X-Ray 07/02/18 00:00 CONCLUSION: There are pedicular screws at L4-L5 related to posterior fusion. Discharge Plan - Discharge Disposition Patient Disposition: W/Home Health Service - Discharge Condition Condition: Stable - Discharge Order Discharge Orders: Discharge Order (Routine); Ordered 07/04/18 Ordered By: Connie Anderson - Physicians Team Primary Care Provider: Romain Mitchell Attending Provider: Cedrick Cain Other Providers: Kb Ernandez DO ; [facility] - Rxs /Orders / Referrals /Forms Prescriptions: Continue acetaminophen [Acetaminophen Extra Strength] 500 mg Tablet 500 mg PO Q6H PRN (Reason: Pain) apixaban [Eliquis] 5 mg Tablet 5 mg PO BID furosemide 40 mg Tablet 40 mg PO BID gabapentin 400 mg Capsule 400 mg PO QID magnesium 250 mg Tablet 250 mg PO BID morphine 15 mg Tablet Extended Release 15 mg PO Q12H spironolactone 25 mg Tablet 25 mg PO DAILY zolpidem 10 mg Tablet 10 mg PO HS Ambulatory Orders / Order Sets / DME: Adjustable Commode 3-in-1 (1 each) (Routine) Location: Determined by Patient Ordered By: Connie Anderson Referrals: Serina Spencer [facility] [Outside] - See Instructions (They will follow up with you for home health care the day after discharge. Call if you have any questions.) Romain Mitchell MD [Primary Care Provider] - See Instructions - Discharge Instructions Patient Printed Instructions: Spironolactone (By mouth), Furosemide (By mouth) , Acetaminophen (By mouth), Morphine, Rapid Release (By mouth), Gabapentin (By mouth), Zolpidem (By mouth), Magnesium (By mouth), Apixaban (By mouth), Laminectomy (DC)
== END 2018-07-04 12:12 | disposition home health service (06) ==
LOC: HSDC 06:15 → EDSTATUS 08:30 → HSDI 14:52 → N06 16:46
PROVIDERS: ADMIT Neurological Surgery; ATTEND Neurological Surgery